=== PATIENT | female | born 1965 | race Caucasian/White ===

== ENCOUNTER 2020-04-09 11:29 | Outpatient (CLI) | payer BC, SELFPAY ==
--- NOTE | ~2020-04-09 | XR_ITS ---
EXAMINATION: XR chest 2V DATE: 04/09/2020 11:53 INDICATION: Chest wall recurrence of breast cancer, right. TECHNIQUE: Frontal and lateral views of the chest were obtained. COMPARISON: Chest single view 03/14/2019 FINDINGS: There is mild scarring at the lung apices. No pleural effusion or pneumothorax. The heart s ize is normal. There is a left chest port with tip in superior vena cava. There are surgical clips in right axilla. IMPRESSION: 1. Mild scarring at the lung apices. Reviewed, dictated and finalized at location A.
== END 2020-04-09 11:30 | disposition home or self-care (01) ==
LOC: ANHIMG 11:36
PROVIDERS: PCP Family Medicine
DX: C50.911 Malignant neoplasm of unspecified site of right female breast (principal); C79.89 Secondary malignant neoplasm of other specified sites
CPT/HCPCS: 71046

== ENCOUNTER 2020-05-15 07:36 | Outpatient (CLI) | payer BC, SELFPAY ==
--- NOTE | ~2020-05-15 | CT_ITS ---
EXAMINATION: CT chest abdomen pelvis w con EXAM DATE: 05/15/2020 08:04 INDICATION: Malignant neoplasm of upper-inner quadrant of RT breast . TECHNIQUE: Spiral CT of the chest, abdomen and pelvis was performed following intravenous injection o f 100 mL Omnipaque 350. Axial, coronal and sagittal images were reviewed. Coronal maximum intensity pixel images of chest reviewed. The dose-length product (DLP) for this examination was 1013.64 mGy- cm. The exposure was tailored according to patient size (auto mA exposure control), and iterative re construction (ASIR) was used as additional dose reduction technique. There is no prior study for catrina esparza. FINDINGS: CHEST: There is a left-sided Chemo-Port, intact line. There is right lower lobe calcified granuloma. Bilateral mastectomies. Axillary surgical clips. There are no pleural or pericardial effusions. Tr acheobronchial tree is patent. There is no mediastinal, hilar or axillary lymphadenopathy. There is no pneumothorax. Heart normal in size. No evidence of coronary arterial calcification. ABDOMEN PELVIS: The liver, spleen, adrenal glands and pancreas are unremarkable. Gallbladder is unre markable. No biliary obstruction. Portal and splenic veins are patent. Kidneys enhance symmetrical ly. There is no hydronephrosis. The uterus is retroverted and morphologically normal. The bladde r is unremarkable. There is no retroperitoneal or pelvic lymphadenopathy. The appendix is normal. The stomach and small bowel are unremarkable. There is expected amount of c olonic stool. No free intraperitoneal gas. There are no osteoblastic or osteolytic lesions identi fied. Mild lumbar levoscoliosis. IMPRESSION: 1. No evidence of metastatic disease. Reviewed, dictated and finalized at location B. 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
== END 2020-05-15 07:37 | disposition home or self-care (01) ==
LOC: ANHIMG 07:40
PROVIDERS: PCP Family Medicine; Visit Provider Internal Medicine Hematology & Oncology
DX: C50.211 Malignant neoplasm of upper-inner quadrant of right female breast (principal); Z17.1 Estrogen receptor negative status [ER-]
CPT/HCPCS: 71260; 74177; Q9967

== ENCOUNTER 2020-09-18 10:47 | Outpatient (CLI) | payer BC, SELFPAY ==
[2020-09-18 11:05] LABS: Basophils Absolute Auto 0.1 K/mm3 (0.0-0.1); Basophils Percent Auto 0.7 % (0.2-1.2); Eosinophils Absolute Auto 0.1 K/mm3 (0-0.3); Eosinophils Percent Auto 1.5 % (0-4.4); Hematocrit 42.4 % (37.0-47.0); Immature Granulocyte Absolute 0.02 K/mm3 (0.00-0.031); Immature Granulocyte Percent A 0.2 % (0-0.5); Lymphocytes Absolute Auto 1.53 K/mm3 (0.9-3.2); Lymphocytes Percent Auto 18.5 % (18.3-44.2); Mean Corpuscular Hemoglobin 30.4 pg (26-34); Mean Corpuscular Volume 92.2 fl (80-100); Mean Platelet Volume 9.8 fl (7.4-10.4); Monocytes Absolute Auto 0.9 K/mm3 (0.1-0.6); Neutrophils Absolute Auto 5.6 K/mm3 (1.3-6.7); Neutrophils Percent Auto 68.1 % (45.5-73.1); Platelet Count Result 208 k/mm3 (150-375); White Blood Count 8.3 K/mm3 (4.5-10.0)
[2020-09-18 12:08] LABS: Alanine Aminotransferase 18 U/L (4-35); Albumin Level 4.5 g/dL (3.5-5.1); Alkaline Phosphatase 100 U/L (38-126); Anion Gap 7 mmol/L (8-16); Aspartate Amino Transferase 28 U/L (14-36); Bilirubin,Total 0.5 mg/dL (0.2-1.3); Blood Urea Nitrogen 11 mg/dL (7-17); Calcium 9.8 mg/dL (8.4-10.2); Carbon Dioxide 29 mmol/L (22-30); Chloride 104 mmol/L (98-107); Estimated Glomerular Filt Rate > 60; Glucose 103 mg/dL (65-105); Potassium 4.6 mmol/L (3.4-5.0); Sodium 140 mmol/L (137-145)
[2020-09-23 20:56] LABS: CA 15-3 113 U/mL (<32)
== END 2020-09-18 10:48 | disposition home or self-care (01) ==
LOC: ANHLAB 10:48
PROVIDERS: PCP Family Medicine; Visit Provider Internal Medicine Hematology & Oncology
DX: C50.211 Malignant neoplasm of upper-inner quadrant of right female breast (principal); Z17.1 Estrogen receptor negative status [ER-]
CPT/HCPCS: 36415; 80053; 85025; 86300

== ENCOUNTER → 2020-10-04 01:55 | Outpatient (CLI) | payer BC, SELFPAY ==
[2020-10-04 20:22] LABS: SARS-CoV-2 RNA PCR Negative
== END ==
PROVIDERS: PCP Family Medicine; Visit Provider Surgery
DX: Z01.812 Encounter for preprocedural laboratory examination (principal); Z20.822 Contact with and (suspected) exposure to COVID-19
CPT/HCPCS: C9803; U0003; U0005

== ENCOUNTER 2020-10-08 01:30 | Day surgery (SDC) | payer BC, SELFPAY ==
[2020-09-26 14:11] VITALS: BMI 31.8
[2020-10-08] VITALS (10 sets, daily range): BP systolic 131–167; BP diastolic 59–78; PULSE 68–96; RESP 15–17; TEMP 37.2; O2SAT 96–100
--- NOTE | 2020-10-08 10:38 | PM.HPGS ---
History of Present Illness History of Present Illness Consent: Risks, benefits, and alternatives of removal of a Port-A-Cath have been discussed and questions answered. Patient agrees to proceed with procedure. Chief complaint: malignant neoplasm upper right breast Narrative: Zoe Alonso is a 55 year old female who had triple negative breast cancer discovered in 2018. She underwent neoadjuvant chemotherapy through a port. she then underwent bilateral mastectomy with 1 sign being prophylactic. Then in April of 2020 she was found to have a recurrence on the chest wall on the right. This was excised with negative margins and she underwent some radiation therapy which was completed in July 2020. She now has recently seen Dr. Meghann leal and has had labs and then approval for removal of the port. She presents for that at this time period Review of Systems Constitutional: Constitutional: Reports no additional constitutional complaints, Reports fatigue and Denies malaise Eyes: Eyes: Denies change in vision and Denies loss of vision ENT: Reports Normal hearing present, Denies change in voice, Denies dizziness, Denies hoarseness and Denies sore throat Cardiovascular: Cardiovascular: Denies chest pain, Denies leg edema and Denies dyspnea Respiratory: Respiratory: Denies cough, Denies dyspnea and Denies wheezing Gastrointestinal: Gastrointestinal: Denies hematochezia, Denies change in bowel habits and Denies heartburn Genitourinary: Genitourinary: Denies urinary frequency and Denies urinary incontinence Neurologic: Reports Normal hearing present, Denies confusion, Denies dizziness, Denies loss of vision, Denies memory loss and Denies seizure-like activity Psychiatric: Psychiatric: Denies confusion, Denies depression and Denies memory loss Endocrine: Endocrine: Denies cold intolerance and Reports fatigue Hematologic/Lymphatic: Hematologic/Lymphatic: Denies easy bleeding and Denies easy bruising Allergic/Immunologic: Allergic/Immunologic: Denies wheezing PMFSH Past Medical History Medical History (Updated 10/08/20 @ 10:41 by Ankur Quevedo MD) Hyperlipidemia Port-A-Cath in place Surgical History Surgical History (Updated 10/08/20 @ 10:43 by Ankur Quevedo MD) History of modified radical mastectomy of right breast History of prophylactic mastectomy of left breast Family History Family History (Updated 04/09/20 @ 10:58 by Iram Guerrero MD) Grandparent Lung cancer Maternal Grandfather Social History Social History (Updated 04/09/20 @ 10:58 by Iram Guerrero MD) Smoking status: Never smoker Living arrangements: with family Spiritual care concerns: No Meds Home Medications and Allergies Home Medications Medication Instructions Recorded Confirmed Type No Home Medications 08/29/20 10/08/20 History Allergies Allergy/AdvReac Type Severity Reaction Status Date / Time No Known Allergies Allergy Unknown Verified 10/08/20 14:01 Exam Const: General: cooperative, healthy appearing, no acute distress, well developed and alert; No confusion Nutritional Appearance: well nourished Orientation/consciousness: patient oriented x3 and No confusion Limitations: no limitations HENMT: Head: normal to inspection, normocephalic and atraumatic Ears: hearing grossly normal bilaterally General nose exam: Normal external nose present Face and sinus: no edema Mouth: Yes Normal oral and palatal mucosa present and Yes lip normal Throat: posterior oropharynx normal Eyes: General: appearance normal, both eyes and all related structures Sclera: sclerae normal Pupils: Equal, round and reactive pupils present EOM: EOMs intact bilaterally Neck: Neck: normal visual inspection, no lymphadenopathy, trachea midline and supple Chest: Other: Port-A-Cath under small incision site left chest. Resp: Effort & Inspection: normal respiratory effort and able to speak in complete sentences [facility]
--- NOTE | 2020-10-08 14:34 | WPDHPUPDATE1 ---
History and Physical Update Update Date/Time: 10/08/20 14:34 History and Physical has been reviewed, including an updated exam of the patient. There are NO changes in the patient's condition. Risks, benefits, and alternatives have been discussed and questions answered. Patient agrees to proceed with procedure.
[2020-10-08] MEDS: LIDO 2%/EPINEPHRINE 1:100,000 20 ML VIAL 10 ML INFILTRATE (15:22)
--- NOTE | 2020-10-08 15:59 | PM.PROC ---
Procedure Note - Detailed Date of procedure: 10/08/20 Pre-op diagnosis: malignant neoplasm upper right breast Indwelling Port-A-Cath Post-op diagnosis: same Procedure performed: Removal of Port-A-Cath Description of procedure: Prior to the procedure the patient was seen in the holding area and the area of proposed surgery was marked. All questions were answered and the patient wished to proceed with removal of the Port-A-Cath. The patient was brought to the operating room and placed supine. The entire left neck, chest, and shoulder were prepped with chlorhexidine. The area was draped off. Time-out was performed confirming patient and site of surgery. Following this after instilling local anesthetic a 15 blade knife was used to make incision directly over the previous port and it's junction with the catheter . This was done after infiltrating local anesthetic into the area of the pocket containing the port to some degree using 1% xylocaine with epinephrine. Following this we carefully dissected down to the junction of the port and catheter. Bovie cautery with needle-tip was used to carefully incise the capsule around the port and free up the scar tissue around the junction of the port and catheter. Two Black silk sutures that were holding the port to the underlying fascia were carefully excised with a 15 blade knife and mosquito hemostats. Following this the port was brought up and out of the pocket. Then watching the patient's respirations I carefully removed the catheter in one smooth pull while applying pressure in the lower right neck area at the catheter exit site as the patient was breathing out. Pressure was held for 1 minute. I used Bovie cautery on some the subcutaneous tissues as we waited for good clotting. Again hemostasis was checked in the wound using Bovie cautery for superficial hemostasis in the subcutaneous tissues. Following this closure was obtained with 2 layers. I used buried subcutaneous sutures of 3-0 Vicryl in the subcutaneous layer followed by a running subcuticular closure of 4-0 Monocryl on the skin. Patient tolerated the procedure well. Estimated blood loss was 3 cc Sponge, needle, and instrument counts were correct at the end the procedure and patient was taken to the outpatient recovery area in good condition. Implants: none Anesthesia: local ( 2% xylocaine with epinephrine) Surgeon: Ankur Quevedo MD Field Human Resources Manager: none Estimated blood loss (mL): 3 Drains: No Packing: No Pathology: none sent Complications: No immediate complications Condition: stable Disposition: other ( outpatient recovery area) Findings: unremarkable port and catheter that were intact.
== END 2020-10-08 16:08 | disposition home or self-care (01) ==
PROVIDERS: PCP Family Medicine; Visit Provider Surgery
PROC: (CPT 36589; principal; 2020-10-08 13:00)
DX: Z45.2 Encounter for adjustment and management of vascular access device (principal); Z85.3 Personal history of malignant neoplasm of breast; Z90.13 Acquired absence of bilateral breasts and nipples; Z92.21 Personal history of antineoplastic chemotherapy; Z92.3 Personal history of irradiation; E78.5 Hyperlipidemia, unspecified
CPT/HCPCS: 36590

== ENCOUNTER 2021-01-21 06:42 | Outpatient (CLI) | payer BC, SELFPAY ==
--- NOTE | ~2021-01-21 | CT_ITS ---
EXAMINATION: CT chest abdomen pelvis w con DATE: 01/21/2021 07:25 INDICATION: Triple negative breast cancer TECHNIQUE: Computed tomography (CT) of the chest, abdomen, and pelvis was performed with 100 cc Omnip aque 350 intravenous contrast. Automated exposure control and iterative reconstruction technique were employed. Exam dose: 1053.86 mGy-cm total exam DLP. COMPARISON: 05/15/2020 CT chest abdomen pelvis FINDINGS: CHEST CT: Status post bilateral mastectomy and bilateral axillary lymph node dissection. No axillary lymphadeno carmine. Up to approximately 4 mm deep 15 mm wide subcutaneous soft tissue density is noted along the left ant erior chest wall (series 3 image 33); consider PET/CT imaging to evaluate for possible malignancy. There is mild patchy infiltrate in the right apical area and minimal focal peripheral infiltrates of the middle lobe. There is compressive atelectasis at the base of the right lower lobe secondary to moderately large ri ght pleural effusion effusion. No left pleural effusion. 3.8 mm calcified posterior segment left upper lobe pulmonary granuloma (series 4 image 40). The tracheobronchial tree is patent except for the presence of right lower lobe atelectasis. Normal heart size. No thoracic aortic aneurysm or dissection. No pericardial effusion. There is mild superior mediastinal lymphadenopathy. There is prevascular lymphadenopathy, measuring u p to 8.9 x 18 mm right paratracheal lymphadenopathy, measuring up to 8.6 x 17 mm. There is precarinal lymphadenopathy measuring up to 9.4 x 13.5 mm. There is mild bilateral hilar lymphadenopathy and more prominent subcarinal lymphadenopathy. ABDOMEN/PELVIS CT: The liver, spleen, pancreas, gallbladder, bile ducts, pancreatic duct, and adrenal glands and kidneys are unremarkable. There are several up to 8 mm enhancing densities in the left upper quadrant, likely accessory splenic tissue. No urinary tract calculus or hydroureteronephrosis is evident. The urinary bladder is unremarkable. Retroverted uterus. No adnexal mass lesion is evident. Normal caliber of the abdominal aorta. No intraperitoneal or retroperitoneal or pelvic mass lesion or adenopathy or ascites is detected. Normal appendix. No bowel obstruction, bowel wall thickening, pneumatosis or intraperitoneal free air . No suspicious osteolytic or osteoblastic lesions are noted. IMPRESSION: Status post bilateral mastectomy and axillary lymph node dissection Asymmetric 4 x 15 mm subcutaneous soft tissue density of the anterior left chest wall; malignancy is not excluded. Consider PET/CT imaging and/or biopsy Bilateral hilar and mediastinal lymphadenopathy, likely due to metastatic disease Moderate right pleural effusion with associated mild compressive right lower lobe atelectasis Mild right apical and middle lobe infiltrate Reviewed, dictated and finalized at Location A. Reviewed, dictated and finalized at location B. IMPRESSION: Status post bilateral mastectomy and axillary lymph node dissectio n Asymmetric 4 x 15 mm subcutaneous soft tissue density of the anterior left ches t wall; malignancy is not excluded. Consider PET/CT imaging and/or biopsy Bilateral hilar and mediastinal lymphadenopathy, likely due to metastatic disea se Moderate right pleural effusion with associated mild compressive right lower lo be atelectasis Mild right apical and middle lobe infiltrate
== END 2021-01-21 06:43 | disposition home or self-care (01) ==
PROVIDERS: PCP Family Medicine; Visit Provider Internal Medicine Hematology & Oncology
DX: C50.919 Malignant neoplasm of unspecified site of unspecified female breast (principal); J90 Pleural effusion, not elsewhere classified
CPT/HCPCS: 71260; 74177; Q9967

== ENCOUNTER 2021-02-19 08:23 | Outpatient (CLI) | payer BC, SELFPAY ==
--- NOTE | ~2021-02-19 | XR_ITS ---
EXAMINATION: [id number]_CR DATE: 02/19/2021 11:35 INDICATION: Right pleural effusion status post thoracentesis. TECHNIQUE: A single frontal view of the chest was obtained. COMPARISON: Chest 2 views 04/09/2020 FINDINGS: There is mild scarring at right lung apex. There is mild atelectasis at right lung base. No pleural effusion or pneumothorax. The heart size is normal. Surgical clips overlie the chest and axi llae. IMPRESSION: 1. Mild scarring at right lung apex and mild atelectasis at right lung base. Reviewed, dictated and finalized at location A.
--- NOTE | ~2021-02-19 | US_ITS ---
EXAMINATION: US soft tissue chest DATE: 02/19/2021 12:31 INDICATION: Left chest wall mass. TECHNIQUE: Multiple grayscale and Doppler ultrasound images of the left chest wall were obtained. COMPARISON: Chest CT 01/21/2021 FINDINGS: In the left chest, there is a 12 x 5 mm hypoechoic subcutaneous mass. IMPRESSION: 1. Small subcutaneous mass in the area of the recent left chest port removal, consistent with scarrin g. No biopsy was performed. Reviewed, dictated and finalized at location A. IMPRESSION: 1. Small subcutaneous mass in the area of the recent left chest port removal, c onsistent with scarring. No biopsy was performed.
--- NOTE | ~2021-02-19 | US_ITS ---
EXAMINATION: US thoracentesis DATE: 02/19/2021 12:31 INDICATION: pleural effusion TECHNIQUE: The procedure and its risks, benefits, and alternatives were discussed with the patient. P otential risks discussed included bleeding, infection, and pneumothorax. The patient understood the r isks and agreed to proceed. The skin was prepped and draped in sterile fashion. 1% lidocaine was used for local anesthesia. Under ultrasound guidance, a 5 Fr catheter with trochar was advanced into the right pleural effusion. Fluid was aspirated. The catheter was removed, and a dressing was applied. Th ere were no immediate complications. FINDINGS: Ultrasound images demonstrate a right pleural effusion and the catheter within the fluid. IMPRESSION: 1. Successful ultrasound-guided thoracentesis yielding 700 mL of opaque, white fluid. Reviewed, dictated and finalized at location A.
[2021-02-19 10:27] LABS: Platelet Count Result 189 k/mm3 (150-375)
[2021-02-19 10:38] LABS: INR 0.9; Prothrombin Time 12.4 Seconds (11.1-14.7)
[2021-02-19 11:30] VITALS: BP 136/68; PULSE 68; RESP 14; O2SAT 100
[2021-02-19 11:45] VITALS: BP 142/72; PULSE 72; RESP 20
[2021-02-19 12:00] VITALS: BP 128/72; PULSE 68; RESP 20
[2021-02-19 12:26] VITALS: BP 113/73; BP 167/79; PULSE 71; PULSE 88; RESP 18; O2SAT 98; O2SAT 99
[2021-02-19 12:30] VITALS: BP 132/76; PULSE 65; RESP 16
[2021-02-19 13:15] VITALS: BP 133/70; PULSE 60; RESP 18
--- NOTE | 2021-02-19 15:36 | SUR.PHASEII ---
1318 - dr. walton updated on pt's status and okayed to send home
[2021-02-21 21:56] LABS: LDH Pleural Fluid 193 U/L
[2021-02-26 00:54] LABS: Albumin Pleural Fluid 3.7 g/dL
== END 2021-02-19 13:25 | disposition home or self-care (01) ==
PROVIDERS: Radiology Diagnostic Radiology; PCP Family Medicine; Visit Provider Internal Medicine Hematology & Oncology
DX: C50.211 Malignant neoplasm of upper-inner quadrant of right female breast (principal); Z17.1 Estrogen receptor negative status [ER-]
CPT/HCPCS: 32555; 36415; 76604; 82042; 83615; 84157; 85049; 85610; 87205; 88104; 88108; 88184; 88185; 88305; 88342

== ENCOUNTER 2021-06-17 08:17 | Outpatient (CLI) | payer BC, SELFPAY ==
--- NOTE | ~2021-06-17 | CT_ITS ---
EXAMINATION: CT diagnostic chest w con DATE: 06/17/2021 08:56 INDICATION: Breast cancer TECHNIQUE: Transaxial computed tomographic images of the chest were obtained after the administration of 75 cc of Omnipaque 350 intravenous contrast. The dose-length product (DLP) was 222.66 mGy-cm. Ite rative reconstruction was used. COMPARISON: 01/21/2021 FINDINGS: There is a moderate size right pleural effusion with interval increase in size. Patchy airs pace opacities are present in the left lung. There is scarring of the right lung apex. Minimal depend ent passive atelectasis is present on the right. There are changes of bilateral mastectomy and axilla ry lymph node dissection. The heart size is normal. Previously identified mediastinal lymphadenopathy has improved. There is stenosis of the left brachiocephalic vein with dilated internal mammary vein collaterals. There is mild thoracic spondylosis. IMPRESSION: 1. Moderate-sized right pleural effusion with increase in size. 2. Patchy airspace opacities of the left lung, likely infectious or inflammatory. 3. Improved mediastinal lymphadenopathy. Reviewed, dictated and finalized at location A. 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 Moderate-sized right pleural effusion with increase in size. 2. Patchy airspace opacities of the left lung, likely infectious or inflammator y. 3. Improved mediastinal lymphadenopathy.
== END 2021-06-17 08:18 | disposition home or self-care (01) ==
LOC: ANHIMG 08:20
PROVIDERS: PCP Family Medicine; Visit Provider Internal Medicine Hematology & Oncology
DX: C50.919 Malignant neoplasm of unspecified site of unspecified female breast (principal); J90 Pleural effusion, not elsewhere classified; R91.8 Other nonspecific abnormal finding of lung field; R59.1 Generalized enlarged lymph nodes
CPT/HCPCS: 71260; Q9967

== ENCOUNTER 2021-09-10 06:32 | Outpatient (CLI) | payer BC, SELFPAY ==
--- NOTE | ~2021-09-10 | CT_ITS ---
EXAMINATION: CT diagnostic chest w con EXAM DATE: 09/10/2021 07:27 INDICATION: Triple Nagative Malignant Neoplasm Of Breast . TECHNIQUE: Spiral CT of the chest following intravenous injection of 75 mL Omnipaque 350. Axial, cor onal and sagittal images of the chest were reviewed. Coronal maximum intensity pixel images of chest reviewed. The dose-length product (DLP) for this examination was 148.50 mGy-cm. The exposure was t ailored according to patient size (auto mA exposure control), and iterative reconstruction (ASIR) was used as additional dose reduction technique. Comparison is made to prior examination from 06/17/2021, 06/17/2021. FINDINGS: Interval development of moderate amount of bilateral perihilar airspace disease, appears t o insinuate into the hilum. 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 Previously seen smaller patchy regions of pneumonia have resolved. There is moderate-sized right-sided pleural effusion and a small left pleural effusion . Extensive mediastinal metastatic lymphadenopathy seen in January much less conspicuous today, probably stable compared to June. No central pulmonary emboli. No pneumothorax. No pulmonary emboli. There are no osteoblastic or osteo lytic lesions identified. Bilateral axillary surgical clips. IMPRESSION: 1. 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 2. Moderate right, small left pleural effusions. Reviewed, dictated and finalized at location B. 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 Development of bilateral perihilar airspace disease insinuating into antwon, appearance most consistent with lymphangitic carcinomatosis. 2. Moderate right, small left pleural effusions.
== END 2021-09-10 06:33 | disposition home or self-care (01) ==
PROVIDERS: PCP Family Medicine; Visit Provider Internal Medicine Hematology & Oncology
DX: C50.919 Malignant neoplasm of unspecified site of unspecified female breast (principal); J90 Pleural effusion, not elsewhere classified
CPT/HCPCS: 36415; 71260; 80053; 85025; 86300; Q9967

== ENCOUNTER 2021-11-19 08:29 | Outpatient (CLI) | payer BC, SELFPAY ==
--- NOTE | ~2021-11-19 | CT_ITS ---
EXAMINATION: CT diagnostic chest w con DATE: 11/19/2021 08:59 INDICATION: History of triple negative breast cancer TECHNIQUE: Transaxial computed tomographic images of the chest were obtained after the administration of 75 cc of Omnipaque 300 intravenous contrast. The dose-length product (DLP) was 155.24 mGy-cm. Ite rative reconstruction was used. COMPARISON: 09/10/2021 FINDINGS: There are stable moderate-sized right and small left pleural effusions. Infiltrating bilate ral perihilar soft tissue density persists without significant change. There is no pneumothorax. The heart size is normal. There are changes of bilateral mastectomy and axillary lymph node dissection. T here is stable mild mediastinal lymphadenopathy. IMPRESSION: 1. Stable infiltrating bilateral perihilar soft tissue which could reflect recurrent malignancy. Cons ider bronchoscopy. 2. Stable moderate size right and small left pleural effusions. Reviewed, dictated and finalized at location A. IMPRESSION: 1. Stable infiltrating bilateral perihilar soft tissue which could reflect recu rrent malignancy. Consider bronchoscopy. 2. Stable moderate size right and small left pleural effusions.
== END 2021-11-19 08:30 | disposition home or self-care (01) ==
PROVIDERS: PCP Family Medicine; Visit Provider Internal Medicine Hematology & Oncology
DX: C50.919 Malignant neoplasm of unspecified site of unspecified female breast (principal); R91.8 Other nonspecific abnormal finding of lung field
CPT/HCPCS: 36415; 71260; 80053; 85025; 86300; Q9967

== ENCOUNTER 2022-03-24 06:49 | Outpatient (CLI) | payer BC, SELFPAY ==
--- NOTE | ~2022-03-24 | CT_ITS ---
EXAMINATION: CT diagnostic chest w con DATE: 03/24/2022 07:15 INDICATION: History of triple negative breast cancer TECHNIQUE: Transaxial computed tomographic images of the chest were obtained after the administration of 75 cc of Omnipaque 350 intravenous contrast. The dose-length product (DLP) was 151.72 mGy-cm. Ite rative reconstruction was used. COMPARISON: 11/19/2021 FINDINGS: Moderate size right and small left pleural effusions are stable. There is stable infiltrati ng bilateral perihilar soft tissue density. There is a 4 mm nodule of the right lower lobe on image 9 0. An 8 mm nodule of the right lower lobe on image 97 abutting the diaphragm is increased in size fro m 6 mm. There is no pneumothorax. The heart size is normal. There is stable mild mediastinal lymphade nopathy. There are changes of bilateral mastectomy and axillary lymph node dissection. There is mild thoracic spondylosis. IMPRESSION: 1. Enlarging right lower lobe nodules concerning for metastatic disease. 2. Stable infiltrating bilateral hilar soft tissue, possible recurrent malignancy. Consider bronchosc opy if not previously performed. 3. Moderate size right and small left pleural effusions, stable. Reviewed, dictated and finalized at location B. IMPRESSION: 1. Enlarging right lower lobe nodules concerning for metastatic disease. 2. Stable infiltrating bilateral hilar soft tissue, possible recurrent malignan cy. Consider bronchoscopy if not previously performed. 3. Moderate size right and small left pleural effusions, stable.
== END 2022-03-24 06:50 | disposition home or self-care (01) ==
PROVIDERS: PCP Family Medicine; Visit Provider Internal Medicine Hematology & Oncology
DX: C50.919 Malignant neoplasm of unspecified site of unspecified female breast (principal); R91.8 Other nonspecific abnormal finding of lung field; J90 Pleural effusion, not elsewhere classified
CPT/HCPCS: 36415; 71260; 80053; 85025; 86300; Q9967

== ENCOUNTER 2022-04-30 01:09 | Day surgery (SDC) | payer BC, SELFPAY ==
[2022-04-26 11:10] VITALS: BMI 28.3
--- NOTE | 2022-04-26 11:14 | PC.NURSE ---
Report to the Outpatient Waiting Room, entrance under the green pavilion located off [facility], at time 1300 on date 04/30/22. OR Time: 1500. Time changes happen often and if your time is changed the preop area will call you the afternoon before. - You and your visitor will be asked to self-screen and do not enter if you have any COVID symptoms. - We encourage only one visitor and NO visitors under age 16 are allowed at this time. Your visitor will receive communication by the phone number that is given day of service. - The patient visitor is requested to social distance or may leave the building when not with patient due to restrictions. - A mask is required within the hospital. Patients may have clear liquids (water, carbonated beverages, clear teas, apple juice) until 3 hours prior to surgery with a maximum of 20 ounces. - No food from midnight until time of surgery Take the following medications with a SIP of water the morning of surgery: N/A Medications to discontinue per physician: N/A Date to take last dose: N/A Please no make-up, nail yi, hairspray, perfume, deodorant, or body powder the day of surgery. No jewelry (including any body piercings) or valuables the day of surgery, leave them at home. Please take a shower or bath the night before, or the morning of, surgery with an antibacterial soap. Wear comfortable, loose fitting clothing. - Jewelry must be removed prior to entering the operating room. Rings and piercings that are not removed may be cut off. - The hospital will not accept responsibility for valuables. - Please leave all valuables, including medications, at home the day of surgery. If you are going home after surgery, a licensed car pick up driver must drive you home. - NO public transportation without another adult. - We recommend that an adult stay with you for 24 hours following discharge. - We also recommend that you do not drive, make important decision, drink alcoholic beverages, or take any drugs that were not prescribed by your health care provider for at least 24 hours after your discharge time. Follow any additional instructions given to you from your surgeon. If you or anyone in your household have experienced Covid symptoms in the past week, please notify your surgeon or the nurse liaison at the phone number below for possible testing. Telephone instructions given to PT - CRISTOPHER PATTON and asked if any additional questions and then verbalized understanding. Patient advised to call surgeon office or pre surgery nurse liaison [phone] if any additional questions.
--- NOTE | ~2022-04-30 | XR_ITS ---
EXAMINATION: XR chest port-a-cath/central DATE: 04/30/2022 13:43 INDICATION: Port placement. TECHNIQUE: A single frontal view of the chest was obtained. COMPARISON: Chest single view 02/19/2021, chest CT 03/24/2022 FINDINGS: There is a moderate-sized right pleural effusion. There are paramediastinal airspace opacit ies bilaterally. No pneumothorax. The heart size is normal. There is a right internal jugular port wi th tip at superior cavoatrial junction. There are surgical clips in the axillae. IMPRESSION: 1. Port tip at superior cavoatrial junction. 2. Bilateral paramediastinal airspace opacities, consistent with radiation fibrosis. 3. Moderate-sized right pleural effusion. Reviewed, dictated and finalized at location A. IMPRESSION: 1. Port tip at superior cavoatrial junction. 2. Bilateral paramediastinal airspace opacities, consistent with radiation fibr osis. 3. Moderate-sized right pleural effusion.
--- NOTE | ~2022-04-30 | XR_ITS ---
EXAMINATION: XR fl guide central line place DATE: 04/30/2022 13:26 INDICATION: Port catheter insertion TECHNIQUE: 3 fluoroscopic images of the upper chest were obtained during procedure performed by Dr. Demi williamson. Radiologist was not present for the imaging or procedure. The amount of fluoroscopy time used during this procedure was 2.0 minutes. COMPARISON: Chest CT dated 03/24/2022 FINDINGS: Right internal jugular central venous port catheter with distal tip in the region of the alcaraz perior cavoatrial junction. Multiple surgical clips project over the right chest and axilla likely re lated to prior right mastectomy and right axillary lymph node dissection. IMPRESSION: 1. Fluoroscopy utilized during right internal jugular central venous port catheter placement with dis ale tip at the superior cavoatrial junction. Reviewed, dictated and finalized at location A. IMPRESSION: 1. Fluoroscopy utilized during right internal jugular central venous port liborio ter placement with distal tip at the superior cavoatrial junction.
[2022-04-30] MEDS: LACTATED RINGERS 1,000 ML 30 ML IV CONT (10:46)
[2022-04-30 11:00] VITALS: BP 148/74; PULSE 95; RESP 16; TEMP 36.8; O2SAT 97
[2022-04-30 11:17] LABS: INR 1.2; Partial Thromboplastin Time 25.2 SECONDS (22.3-36.8); Prothrombin Time 14.9 Seconds (11.1-14.7)
[2022-04-30] MEDS: KETOROLAC 15 MG/ML VIAL (*BKC) IV PUSH (11:52)
--- NOTE | 2022-04-30 11:55 | WPDANESEPPF ---
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 Patient Data Age: 57 Gender: F Height: 1.65 m Weight: 77 kg Last Vital Signs Temp 36.8 C 04/30/22 11:00 Pulse 95 04/30/22 11:00 Resp 16 04/30/22 11:00 BP 148/74 H 04/30/22 11:00 Pulse Ox 97 04/30/22 11:00 O2 Del Method Room Air 04/30/22 11:00 Allergies Allergy/AdvReac Type Severity Reaction Status Date / Time No Known Allergies Allergy Unknown Verified 04/30/22 10:18 Home Medications Medication Instructions Recorded Confirmed Type No Home Medications 05/14/21 04/26/22 History Laboratory Tests 04/30/22 10:36 PT 14.9 Seconds H Seconds (11.1-14.7) INR 1.2 APTT 25.2 SECONDS SECONDS (22.3-36.8) Patient hx anesthesia problems: none Family hx anesthesia problems: none Results Review: All pre-operative results and documents have been reviewed as part of the pre-operative evaluation. [facility] Past Medical History Medical History Hyperlipidemia Port-A-Cath in place Surgical History Surgical History History of modified radical mastectomy of right breast History of prophylactic mastectomy of left breast Family History Family History Grandparent Lung cancer Maternal Grandfather Social History Social History Smoking status: Never smoker Alcohol intake: never Substance use: never Substance use type: does not use Living arrangements: with family Spiritual care concerns: No Anes - Eval Final PreProcedure Day of Procedure 04/30/22 11:55 Patient weight: overweight Heart: regular rate and rhythm Lungs: clear to auscultation Airway: Mallampati scale class II Neurological: alert and oriented Last oral intake: >/= 8 hours ASA classification: III Emergent: no Anesthetic plan: proceed Anesthesia type and monitoring: general GIVS and standard monitoring Results Review: All pre-operative results and documents have been reviewed as part of the pre-operative evaluation. Informed Consent: The patient's anesthetic plan and its attendant risks and benefits were discussed with the patient/family/POA. Questions were solicited and answers provided to the satisfaction of the patient/family/POA.
--- NOTE | 2022-04-30 12:00 | PM.IMHP ---
H&P: HPI History of Present Illness Date/Time: 04/30/22 12:00 Chief Complaint: metastatic breast cancer Narrative: 57 yo woman presents for Port-a-Cath placement. She has a hx of right breast cancer and underwent bilateral mastectomy 3 years ago. She has a recurrence which was initially treated with radiation but now she is in need of chemotherapy as well. She had a port placed before but this was removed September 2020. Review of Systems Review of Systems: All systems reviewed & are unremarkable except as noted in HPI and below Constitutional: Constitutional: Denies chills, Denies fever(s), Denies headache(s) and Denies weight loss Eyes: Eyes: Denies change in vision ENT: Denies dizziness, Denies headache(s), Denies neck mass and Denies throat swelling Cardiovascular: Cardiovascular: Denies chest pain, Denies lightheadedness and Denies dyspnea Respiratory: Respiratory: Denies cough, Denies dyspnea and Denies wheezing Gastrointestinal: Gastrointestinal: Denies abdominal pain, Denies change in bowel habits, Denies nausea and Denies vomiting Genitourinary: Genitourinary: Denies hematuria and Denies dysuria Musculoskeletal: Musculoskeletal: Reports as per HPI Integumentary/Breasts: Skin/Breast: Reports as per HPI Neurologic: Denies dizziness and Denies headache(s) Allergic/Immunologic: Allergic/Immunologic: Denies throat swelling and Denies wheezing PMFSH Past Medical History Medical History Hyperlipidemia Port-A-Cath in place Surgical History Surgical History History of modified radical mastectomy of right breast History of prophylactic mastectomy of left breast Family History Family History Grandparent Lung cancer Maternal Grandfather Social History Social History Smoking status: Never smoker Alcohol intake: never Substance use: never Substance use type: does not use Living arrangements: with family Spiritual care concerns: No Meds Home Medications and Allergies Home Medications Medication Instructions Recorded Confirmed Type No Home Medications 05/14/21 04/26/22 History Allergies Allergy/AdvReac Type Severity Reaction Status Date / Time No Known Allergies Allergy Unknown Verified 04/30/22 10:18 Vital Signs Vital Signs - 24 hr 04/30/22 11:00 Temperature 36.8 C Pulse Rate 95 Respiratory Rate 16 Blood Pressure 148/74 H Pulse Oximetry 97 Oxygen Delivery Room Air Exam Const: General: no acute distress and alert Orientation/consciousness: patient oriented x3 HENMT: Head: normocephalic and atraumatic Ears: hearing grossly normal bilaterally Face/Nose/Sinus: Normal nares present Mouth: Yes Normal oral and palatal mucosa present Eyes: Periorbital: periorbital findings normal Sclera: sclerae normal EOM: EOMs intact bilaterally Neck: Neck: normal visual inspection, no lymphadenopathy and trachea midline Chest: Chest palpation & inspection: normal inspection of the chest Resp: Effort & Inspection: normal respiratory effort Auscultation: clear to auscultation bilaterally Cardio: Jugular venous distension: no JVD Rate: regular rate Rhythm: regular rhythm Heart sounds: S1 normal heart sound present and S2 normal heart sound present Peripheral pulses: Peripheral pulses 2+ throughout GI: Inspection: normal to inspection GI Palp: Yes Soft to palpation, No Tenderness to palpation present (GI), No Guarding due to palpation present (GI) and No Rebound tenderness present Percussion: Yes normal to percussion Auscultation: normal bowel sounds : General: Yes no CVA tenderness Back/Spine/Pelvis: Back: no CVA tenderness Neuro: General: patient oriented x3, no focal motor deficits and CN's II-XI intact bilaterally Cognition (Neuro): jose alfredo
--- NOTE | 2022-04-30 12:03 | WPDHPUPDATE1 ---
History and Physical Update Update Date/Time: 04/30/22 12:03 History and Physical has been reviewed, including an updated exam of the patient. There are NO changes in the patient's condition. Risks, benefits, and alternatives have been discussed and questions answered. Patient agrees to proceed with procedure.
[2022-04-30] MEDS: ceFAZolin 2 GM/D5W 50 ML 2 GM/50 ML BAG IVPB (12:16)
[2022-04-30] MEDS: LIDO 2%/EPINEPHRINE 1:100,000 20 ML VIAL INFILTRATE (12:50)
[2022-04-30] MEDS: HEPARIN SODIUM 5,000 UNITS/ML VIAL 5000 UNITS IRRIGATION (12:52)
[2022-04-30] MEDS: HEPARIN SODIUM, PORCINE 10,000 UNITS/10 ML VIAL 10000 UNITS IV PUSH (12:54)
[2022-04-30 13:30] VITALS: BP 120/62; PULSE 92; RESP 16; O2SAT 97
--- NOTE | 2022-04-30 13:30 | W.PM.PROC2 ---
Procedure Note - Detailed Date of Procedure 04/30/22 Pre-op Diagnosis triple neg malig neoplasm of breast Post-op Diagnosis Same Procedure Performed Right Internal Jugular tunneled Port-a-Cath placement using ultrasound and fluoroscopic guidance Surgeon Ousmane Kim, DO Anesthesia MAC and Local (0.5% bupivicaine with epinephrine) Indications This is a 57-year-old woman who presented with recurrent metastatic breast cancer. She has previously undergone chemotherapy and had a port placed a couple years ago. This port was removed and September of 2020. She was recently found to have recurrence of breast cancer and has undergone some radiation treatment. She now is in need of further chemotherapy. She is in need of a new port to be placed to start chemotherapy again. Findings I attempted left internal jugular Port-A-Cath placement. The left internal jugular vein appeared somewhat small but was able to be cannulated with the 18 gauge introducer needle and the guidewire did advance into the internal jugular vein without difficulty. The guidewire was not advancing towards the superior vena cava. This was likely due to the bulky mediastinal lymphadenopathy. After several attempts to get the guidewire to advance, I then chose to remove the guidewire and reposition for right internal jugular access. Ultrasound guidance was used to identify the right internal jugular vein as a compressible vessel just lateral to the carotid artery. The 18 gauge introducer needle was advanced under ultrasound guidance directly into the lumen of the internal jugular vein. Fluoroscopy was then used to guide advancement of the guidewire followed by the dilator and sheath. The final fluoroscopic images demonstrated the tip of the catheter in the distal SVC and no kinks along its path. Description of Procedure Procedure as well as risks, benefits, and alternatives were discussed with patient. Written consent was obtained and placed in chart prior to procedure. Patient was brought back to surgical suite. Was placed supine on operating table. Time-out was done confirm patient procedure. IV sedation was then administered by the Anesthesia Department. The chest and neck area was prepped and draped in sterile fashion using chlorhexidine prep. Patient was placed in Trendelenburg position. SonoSite ultrasound was initially used to identify the left internal jugular vein and this was accessed with an 18 gauge introducer needle. The guidewire was unable to be successfully advanced into the superior vena cava, therefore the guidewire was removed and pressure was applied for several minutes to allow for adequate hemostasis. SonoSite ultrasound was used to identify the right internal jugular vein. It was visualized as a compressible vessel just lateral to the carotid artery. 1% lidocaine with epinephrine was infiltrated directly over the vessel under ultrasound guidance. An 18 gauge introducer needle was then advanced under ultrasound guidance directly into the right internal jugular vein. Dark nonpulsatile blood was aspirated. A 0.035 in guidewire was then advanced through the needle under fluoroscopic guidance. The guidewire was visualized advancing all the way down into the superior vena cava. 1% lidocaine with epinephrine was then infiltrated on the right anterior chest and along the tract up to the guidewire insertion site. A 3 cm incision was made with a 15 blade scalpel, and electrocautery was then used for dissection down through the subcutaneous tissue to the pectoral fascia. A pocket was created just inferior to the incision using blunt dissection. A small marcos incision was then also made at the insertion site at the neck. The tunneler was then advanced from the chest incision up to the neck incision and the catheter tubing was brought up through this tract. The dilator and sheath were then advanced over the guidewire under fluoroscopic visualization. The dilator and guidewire
[2022-04-30 14:00] VITALS: BP 127/73; PULSE 75; RESP 16; O2SAT 99
[2022-04-30 14:30] VITALS: BP 127/73; PULSE 65; RESP 16; O2SAT 97
== END 2022-04-30 14:48 | disposition home or self-care (01) ==
PROVIDERS: PCP Family Medicine; Visit Provider Surgery
PROC: (CPT 36561; principal; 2022-04-30 12:00)
DX: C50.919 Malignant neoplasm of unspecified site of unspecified female breast (principal); C77.1 Secondary and unspecified malignant neoplasm of intrathoracic lymph nodes
CPT/HCPCS: 36561; 36415; 77001; 85610; 85730; C1788; J0690; J1100; J1644; J1885; J2250; J2405; J2704; J3010; J7030; J7120

== ENCOUNTER 2022-07-29 08:42 | Outpatient (CLI) | payer BC, SELFPAY ==
--- NOTE | ~2022-07-29 | CT_ITS ---
Clinical Indication: Breast cancer CT Scan of the Chest with Contrast: Technique: Contiguous sections were acquired throughout the chest after intravenous administration of 75 cc of Omnipaque 350. Dose reduction technique was used on this scan by utilizing automated exposu re control and iterative reconstruction technique. The dose-length product (DLP) was 154.69 mGy-cm. COMPARISON: 03/24/2022 Findings: There is no evidence of any significant mediastinal, hilar or axillary lymphadenopathy. There is no f illing defect in the pulmonary arterial tree to suggest pulmonary embolus. There is no evidence of ao rtic dissection or aneurysm. There is evidence of bilateral mastectomy. No pericardial effusion. Large right pleural effusion and small left pleural effusion present. Irregular areas of perihilar co nsolidation bilaterally are similar to prior exam, suggestive of postradiation pneumonitis. Images through the upper abdomen reveal no abnormalities. Impression: Overall, there is minimal, if any, change from prior exam. Large right pleural effusion and small left pleural effusion. Irregular areas of perihilar consolidation bilaterally and in the left upper lobe. Chronicity and luci earance suggests postradiation pneumonitis. Correlate with relevant history. Reviewed, dictated and finalized at location . 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 Large right pleural effusion and small left pleural effusion. Irregular areas of perihilar consolidation bilaterally and in the left upper lo be. Chronicity and appearance suggests postradiation pneumonitis. Correlate wit h relevant history.
== END 2022-07-29 08:43 | disposition home or self-care (01) ==
PROVIDERS: PCP Family Medicine; Visit Provider Internal Medicine Hematology & Oncology
DX: C50.919 Malignant neoplasm of unspecified site of unspecified female breast (principal); J90 Pleural effusion, not elsewhere classified
CPT/HCPCS: 71260; Q9967

== ENCOUNTER 2022-08-19 02:29 | Outpatient (CLI) | payer BC, SELFPAY ==
--- NOTE | 2022-08-06 12:41 | PC.NURSE ---
Pre Radiology instructions Report to the outpatient [facility] AT 1100 on date 08/19/22. Procedure Time: 1300. YOU MAY BE MONITORED AT HOSPITAL FOR UP TO 4 HOURS AFTER YOUR PROCEDURE. A visitor will be allowed to accompany the patient into the hospital. ?The visitor will be instructed to remain with patient at all times or MAY BE ASKED TO leave the building due to restrictions.? We will allow the visitor to come back to the postoperative area when patient is ready.? NO children visitors allowed at this time. You and your visitor will be asked to self-screen and do not enter if you have any COVID symptoms. A mask is OPTIONAL within the hospital. Patients are to have no food or drink 6 hours prior to procedure time Driving will be restricted after the procedure, you must have a person to drive you home. Labs will be drawn in preop area and once reviewed, you will be taken to radiology area for procedure. When the procedure is completed, you will be taken to outpatient where you will be monitored for several hours. You may have one visitor in this area. Other than holding anti-coagulants, patient may take other medication(s) as scheduled. Prior to your appointment date patients are instructed to hold anti-coagulants after discussing with ordering provider to stop. If unable to discontinue anti-coagulants please notify radiologist. ? No aspirin or warfarin (Coumadin) for 7 days prior to the procedure. ? No clopidogrel (Plavix), ticagrelor (Brilinta), prasugrel (Effient) or dabigatran (Pradaxa) for 5 days prior to the procedure. ? No rivaroxaban (Xarelto), apixaban (Eliquis), dipyridamole (Aggrenox or Persantine) or cilostazol (Pletal) for 2 days prior to the procedure. Medications to discontinue per physician: N/A Date to take last dose: N/A Please leave all valuables, including medications, at home the day of procedure. The hospital will not accept responsibility for valuables. Wear comfortable, loose fitting clothing.? Follow any additional instructions given to you from ordering provider. Telephone instructions given to ANDREAS PATTON and asked if any additional questions and then verbalized understanding. Patient advised to call scheduling provider office or registration scheduling [phone] if any additional questions.
[2022-08-06 12:44] VITALS: BMI 27.8
[2022-08-19] VITALS (8 sets, daily range): BP systolic 116–134; BP diastolic 65–80; PULSE 82–103; RESP 16–18; TEMP 37.1; O2SAT 97–99
--- NOTE | ~2022-08-19 | US_ITS ---
EXAMINATION: US thoracentesis DATE: 08/19/2022 13:53 INDICATION: pleural effusion TECHNIQUE: The procedure and its risks, benefits, and alternatives were discussed with the patient. P otential risks discussed included bleeding, infection, and pneumothorax. The patient understood the r isks and agreed to proceed. The skin was prepped and draped in sterile fashion. 1% lidocaine was used for local anesthesia. Under ultrasound guidance, a 5 Fr catheter with trochar was advanced into the right pleural effusion. Fluid was aspirated. The catheter was removed, and a dressing was applied. Th ere were no immediate complications. FINDINGS: Ultrasound images demonstrate a right pleural effusion and the catheter within the fluid. IMPRESSION: 1. Successful ultrasound-guided thoracentesis yielding 1000 mL of opaque, white fluid. Reviewed, dictated and finalized at location A. 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 Successful ultrasound-guided thoracentesis yielding 1000 mL of opaque, whit e fluid.
--- NOTE | ~2022-08-19 | XR_ITS ---
EXAMINATION: [id number] DATE: 08/19/2022 13:35 INDICATION: Right pleural effusion status post thoracentesis. TECHNIQUE: A single frontal view of the chest was obtained. COMPARISON: Chest CT 07/29/2022 FINDINGS: There are bilateral perihilar airspace opacities with superior displacement of the antwon, co nsistent with radiation fibrosis. There are small pleural effusions. No pneumothorax. The heart size is normal. There is a right internal jugular port with tip in right atrium. There are surgical clips in the axillae bilaterally. IMPRESSION: 1. Small pleural effusions with improvement on the right status post thoracentesis. 2. Bilateral perihilar airspace opacities, consistent with radiation fibrosis. Reviewed, dictated and finalized at location A. PRINT MAKER IMPRESSION: 1. Small pleural effusions with improvement on the right status post thoracente sis. 2. Bilateral perihilar airspace opacities, consistent with radiation fibrosis.
[2022-08-19 11:36] LABS: INR 1.1; Prothrombin Time 13.4 Seconds (11.1-14.7)
== END 2022-08-19 15:45 | disposition home or self-care (01) ==
PROVIDERS: Radiology Diagnostic Radiology; PCP Family Medicine; Referring Provider Internal Medicine Hematology & Oncology; Visit Provider Radiology Diagnostic Radiology
DX: J90 Pleural effusion, not elsewhere classified (principal); R91.8 Other nonspecific abnormal finding of lung field
CPT/HCPCS: 32555; 36415; 85610

== ENCOUNTER 2022-10-20 08:22 | Outpatient (CLI) | payer BC, SELFPAY ==
--- NOTE | ~2022-10-20 | CT_ITS ---
EXAMINATION:CT diagnostic chest w con DATE: 10/20/2022 09:02 INDICATION: Malignant neoplasm of upper inner quadrant of right breast. TECHNIQUE: Computed tomography (CT) of the chest was performed with 75 mL Omnipaque 350 intravenous c ontrast. Automated exposure control and iterative reconstruction technique were employed. The dose-le ngth product (DLP) was 179.57 mGy-cm. COMPARISON: Chest CT 07/29/2022 FINDINGS: There are large right and small left pleural effusions. There are airspace opacities in the perihilar regions with volume loss, architectural distortion, and bronchiectasis, consistent with ra diation pneumonitis. There is dependent passive atelectasis on the right. The heart size is normal. L eft brachiocephalic vein is small with enlarged collateral veins. There is a right internal jugular p ort with tip in proximal right atrium. There are bilateral mastectomies. There are surgical clips in the axillae. There are no pathologically enlarged lymph nodes. There is mild thoracic spondylosis. Th ere is mild chronic anterior wedging of multiple midthoracic vertebral bodies. IMPRESSION: 1. Large right and small left pleural effusions with mild worsening on the right. 2. Bilateral perihilar radiation pneumonitis. Reviewed, dictated and finalized at location A. IMPRESSION: 1. Large right and small left pleural effusions with mild worsening on the righ t. 2. Bilateral perihilar radiation pneumonitis.
== END 2022-10-20 08:23 | disposition home or self-care (01) ==
PROVIDERS: PCP Family Medicine; Visit Provider Internal Medicine Hematology & Oncology
DX: C50.211 Malignant neoplasm of upper-inner quadrant of right female breast (principal); Z17.1 Estrogen receptor negative status [ER-]; J70.0 Acute pulmonary manifestations due to radiation; J90 Pleural effusion, not elsewhere classified
CPT/HCPCS: 71260; Q9967

== ENCOUNTER 2023-01-13 09:52 | Outpatient (NON) | payer BC, SELFPAY | END 2023-01-13 09:53 | disposition home or self-care (01) | LOC: ANHLAB 09:55 | PROVIDERS: PCP Family Medicine; Visit Provider Surgery | DX: C50.919 Malignant neoplasm of unspecified site of unspecified female breast (principal) | CPT/HCPCS: 88305 ==

== ENCOUNTER 2023-02-16 06:36 | Outpatient (CLI) | payer BC, SELFPAY ==
--- NOTE | ~2023-02-16 | CT_ITS ---
Clinical Indication: Breast cancer CT Scan of the Chest, Abdomen, and Pelvis with Contrast: Technique: Contiguous sections were acquired throughout the chest, abdomen, and pelvis after intraven ous administration of 100 cc of Omnipaque 350. Dose reduction technique was used on this scan by neri nixoning automated exposure control and iterative reconstruction technique. The dose-length product (DL P) was 554.39 mGy-cm. COMPARISON: 10/20/2022 Findings: There is no evidence of any significant mediastinal, hilar or axillary lymphadenopathy. The mediastin al soft tissues appear normal. No pericardial effusion. Moderate to large right pleural effusion and small left pleural effusion are present, similar to prio r exam. Stable biapical and left perihilar consolidative change which could reflect postradiation la nge. The liver, spleen, pancreas, gallbladder, adrenals and kidneys are within normal limits. No evidence of aortic aneurysm. No lymphadenopathy. No bowel obstruction or bowel wall thickening. There is no evidence to suggest acute appendicitis. Urinary bladder is unremarkable. No pelvic mass evident. No ascites. Impression: Moderate to large right pleural effusion and small left pleural effusion, similar to prior exam. Biapical and left perihilar consolidative change is stable from prior exam, likely representing post radiation change. Reviewed, dictated and finalized at [facility]. Impression: Moderate to large right pleural effusion and small left pleural effusion, simil ar to prior exam. Biapical and left perihilar consolidative change is stable from prior exam, lik jason representing post radiation change.
== END 2023-02-16 06:37 | disposition home or self-care (01) ==
PROVIDERS: PCP Family Medicine; Visit Provider Internal Medicine Hematology & Oncology
DX: C50.211 Malignant neoplasm of upper-inner quadrant of right female breast (principal); Z17.1 Estrogen receptor negative status [ER-]; J90 Pleural effusion, not elsewhere classified
CPT/HCPCS: 71260; 74177; Q9967

== ENCOUNTER → 2023-02-23 09:00 | Outpatient (REF) | payer BC, SELFPAY | LOC: ANHLAB 09:00 | PROVIDERS: PCP Family Medicine; Visit Provider Physician Assistant Surgical | DX: C50.919 Malignant neoplasm of unspecified site of unspecified female breast (principal) | CPT/HCPCS: 88305 ==